=== PATIENT | male | born 1980 | race Caucasian/White ===

== ENCOUNTER 2017-11-20 16:28 | Emergency (ER) | payer SELFPAY ==
[2017-11-20 16:37] VITALS: PULSE 111; RESP 20; O2SAT 100
--- NOTE | 2017-11-20 16:40 | DI.RAD_ITS ---
SYMPTOM/DIAGNOSIS: PAIN AFTER BLUNT TRAUMA LEFT KNEE: Three views. No priors. No acute fracture or dislocation is seen. The soft tissues are unremarkable. IMPRESSION: No acute abnormality.
--- NOTE | 2017-11-20 16:43 | ED.GENADUL_ITS ---
Discharge Plan Disposition Patient Disposition: HOME Condition: Good Discharge Details Chief Complaint: Orthopedic Clinical Impression: Contusion of knee, left Primary Care Provider: Leonel Travis ED Provider: [facility] Home Meds and New Rx's Prescriptions: Continue acetaminophen [Tylenol] 325 MG tablet 650 mg PO Q4H PRN PRNQty: 30 RF: 0 ibuprofen 400 MG tablet 400 mg PO Q6H PRN MDD 3 grams PRNQty: 30 RF: 0 Discharge Instructions Instructions: Contusion in Adults (ED) Additional Instructions: Marc bandage to apply compression and stability to the area to reduce discomfort. Elevate the leg above the level of the heart to reduce knee pain and swelling. You will have ongoing resolution of the bruise over another approximately 1 week 's time. If you have persistent pain greater than 1 week, please follow-up with your regular doctor for recheck Return to the emergency department for any acute concerns Stand Alone Forms: Work Release Medical Decision Making MDM Narrative Medical decision making narrative: 37-year-old male who fell and struck a hard object with the knee in a flexed position while carrying a chain saw 4 days ago ; since that time has had gradual onset of dull, achy, left knee pain and swelling. Exam reveals proximal tibia ecchymosis and tenderness. Diagnosis would include tibial plateau fracture, bony contusion. Patient was referred for XR which does not reveal acute bone fracture. He has resolving hematoma. Do not appreciate that there is ligamentous injury on my exam. Discussed home care including use of compression. Discussed with him repeat x-ray if pain persists beyond one weeks time. He is stable for discharge. HPI - General Adult General Mode of arrival: ambulatory . Date/Time Provider Initiated Documentation: 11/20/17 16:37 . Limitations to Documentation: no limitations . Information obtained by: patient . History of Present Illness 37 year old M presents to the emergency department with the chief complaint of L knee, described as moderate, Quality is described as aching, and is localized to the left and lower extremity. Patient reports no radiation. Patient started experiencing this day(s) and it has been constant. Rest improves symptom(s), Rest worsens symptoms . Patient notes no other symptoms.. Related Data Previous Rx's Medication Instructions Recorded acetaminophen [Tylenol] 650 mg PO Q4H PRN PRN #30 tab 12/23/16 ibuprofen 400 mg PO Q6H PRN PRN #30 tablet 12/23/16 MDD 3 grams Allergies Allergy/AdvReac Type Severity Reaction Status Date / Time No Known Allergies Allergy Unverified 11/20/17 16:39 General Stated Complaint: Orthopedic CONG: 4 Review of Systems Review of Systems 6 systems reviewed and otherwise neg PFSH Social History Smoking/Tobacco Use Status: Never Surgical History Appendectomy (01/06/17) Arthroplasty of knee Revision, Scar Exam Narrative Exam Narrative: GEN: awake, alert, oriented 3. Pleasant, well groomed, interactive. HEAD: Normocephalic, atraumatic ENT: Mucous membranes moist, oropharynx unremarkable, External ear exam unremarkable EYES: PERRL, EOMI NECK: Full ROM, no ROSALBA, no menigismus CHEST/RESP: Nontender, clear to auscultation bilateral, no wheeze/rhonchi/rales CARDIOVASCULAR: RRR, no murmur, rub petros. 2+ Rad pulse bilateral ABDOMEN: Soft, nontender, no mass. +Bowel sounds EXT: Full ROM, no edema, no rash. L knee with proximal tibia ecchymosis, tenderness to palpation. No laxity. motor/sensory intact Neuro: Grossly normal neurologic exam, conversant, interactive. Psych: Speech fluent, thoughts congruent, affect normal Course Vital Signs Pulse 111 H 11/20/17 16:37 Respiratory Rate 11/20/17 16:37 Pulse Oximetry 100 11/20/17 16:37 Pulse 111 H 11/20/17 16:37 Respiratory Rate 20 11/20/17 16:37 Pulse Oximetry 100 11/20/17 16:37
[2017-11-20 16:46] VITALS: BP 131/68; TEMP 37
--- NOTE | 2017-11-20 17:41 | DI.VRAD_ITS ---
EXAM: XR Left Knee, 3 views CLINICAL HISTORY: 37 years old, male; Pain; Knee; [place] TECHNIQUE: Three views of the left knee. COMPARISON: No relevant prior studies available. FINDINGS: The bony structures are in anatomic alignment. No fracture is present. No radiopaque foreign body is identified. The joint spaces are well maintained. IMPRESSION: No evidence of acute bony abnormality. Dictated and Authenticated by: Kurtis Mosher MD. Ordering:THADDEUS MC MD
== END 2017-11-20 18:03 | disposition home or self-care (01) ==
PROVIDERS: Emergency Provider Emergency Medicine; PCP Family Medicine
DX: S80.02XA Contusion of left knee, initial encounter (principal); W01.198A Fall on same level from slipping, tripping and stumbling with subsequent striking against other object, initial encounter
CPT/HCPCS: 73562; 99283